=== PATIENT | male | born 1945 | race Caucasian/White ===

== ENCOUNTER → 2017-12-18 14:45 | Outpatient (CLI) | payer MEDICARE, SELFPAY ==
[2017-12-18 16:19] LABS: Anion Gap 5 (5-15); BUN 12 mg/dL (7-18); BUN/Creat Ratio 11.1 RATIO (10-20); Calcium,Total 8.7 mg/dL (8.5-10.1); Chloride 109 mmol/L (98-107); Creatinine, Serum 1.08 mg/dL (0.70-1.30); EST Glomerular Filtration Rate 71 mL/min (>60); Est Glom Filt Rate - Afr Amer 86 mL/min (>60); Glucose 77 mg/dL (74-106); Potassium 4.8 mmol/L (3.5-5.1); Sodium Level 142 mmol/L (136-145)
== END ==
PROVIDERS: Family Provider Family Medicine; PCP Family Medicine; Visit Provider Family Medicine
DX: I10 Essential (primary) hypertension (principal)
CPT/HCPCS: 36415; 80048

== ENCOUNTER → 2018-06-20 11:56 | Outpatient (CLI) | payer MEDICARE, SELFPAY ==
[2018-06-17 07:40] VITALS: BMI 23.2
[2018-06-20 14:24] LABS: AST(SGOT) 18 U/L (15-37); Alanine Aminotransfer ALT/SGPT 20 U/L (16-61); Anion Gap 8 (5-15); BUN 15 mg/dL (7-18); BUN/Creat Ratio 14.6 RATIO (10-20); Calcium,Total 8.6 mg/dL (8.5-10.1); Chloride 109 mmol/L (98-107); Cholesterol 98 mg/dL (200); Creatinine, Serum 1.03 mg/dL (0.70-1.30); EST Glomerular Filtration Rate 75 mL/min (>60); Est Glom Filt Rate - Afr Amer 91 mL/min (>60); Glucose 78 mg/dL (74-106); High Density Lipoprotein 41 mg/dL; Potassium 4.6 mmol/L (3.5-5.1); Sodium Level 143 mmol/L (136-145); Triglycerides 62 mg/dL; Very Low Density Lipoprotein 12 mg/dL (5-40)
--- OUTSIDE RECORDS SUMMARY | 2018-08-06 05:47 | XMS RPT_ITS ---
:1945 Author Organization OHIP Care Team Providers Name Role Phone Ryley, Melrose Attending Unavailable Brittni Sams Referring Unavailable Brittni Sams Attending Unavailable Brittni Sams Primary Care Unavailable Jollleonel Brittni Attending Unavailable Jorakesh Brittni Primary Care Unavailable PROBLEMS PROBLEMS DATE TYPE CONDITION / CODE ATTENDING STATUS SOURCE 06/17/2018 Unknown I25.10 - Ryley, Melrose Active [place] Atherosclerotic heart [facility] disease [facility] coronary artery Repository without angina pectoris / I25.10(ICD-10) 06/17/2018 Unknown I10 - Essential Ryley, Eugene Active [place] (primary) Community hypertension / Hospital I10(ICD-10) Repository 06/17/2018 Unknown E78.2 - Mixed Ryley, Melrose Active [place] hyperlipidemia / Community E78.2(ICD-10) Hospital Repository PROCEDURES PROCEDURES No Procedure Records FoundRESULTS RESULTS BASIC METABOLIC Collected: 06/20/2018 Status: F Source: [place] PROFILE (BMP) 11:57 AM [facility] HOSPITAL REPOSITORY TYPE CODE TESTS RESULT OUT OF RANGE REFERENCE UNITS LAB L501.0100 74-106 mg/dL Normal GLU 78 Result Comment: Please note revised GLUCOSE reference range effective 2017. LAB L501.1000 7-18 mg/dL Normal BUN 15 LAB L501.1100 0.70-1.30 mg/dL Normal CREAT,SERUM 1.03 Result Comment: The validity of the calculated GFR AND GFRAA in patients over 70 years has not been determined. Clinical correlation is essential. LAB L501.1110 >60 mL/min Normal EST GFR 75 Result Comment: Non- GFR Calc LAB L501.1115 >60 mL/min Normal EST GFR - AA 91 Result Comment: GFR Calc LAB L501.1300 10-20 RATIO Normal BUN/CRE 14.6 LAB L501.2200 8.5-10.1 mg/dL CA Normal 8.6 LAB L501.5300 136-145 mmol/L NA Normal 143 LAB L501.5600 3.5-5.1 mmol/L K Normal 4.6 LAB L501.5900 98-107 mmol/L High CL 109 LAB L501.6100 21.0-32.0 mmol/L Normal CO2 26.0 LAB L501.6200 5-15 Normal GAP 8 Performed By: #### L500.2500, L500.4100, L501.4100, L501.4405 #### [facility] [address] [place], [address] LIPID PROFILE Collected: 06/20/2018 Status: F Source: [place] 11:57 AM [facility] TYPE CODE TESTS RESULT OUT OF RANGE REFERENCE UNITS LAB L501.4900 200 mg/dL Normal CHOL 98 Result Comment: <200 mg/dL Desirable 200-240 mg/dL Borderline >240 mg/dL High Risk LAB L501.5000 mg/dL Normal TRIG 62 Result Comment: The drugs N-Acetylcysteine and Metamizole may falsely depress this assay. Serum Triglycerides Reference Interval Normal <150 mg/dL Borderline high 150 - 199 mg/dL High 200 - 499 mg/dL Very High > or = 500 mg/dL LAB L501.6400 mg/dL Normal HDL 41 Result Comment: The drugs N-Acetylcysteine and Metamizole may falsely depress this assay. Reference Range HDL <40 mg/dL Low HDL Cholesterol HDL >or= 60 mg/dL High HDL Cholesterol LAB L501.6500 0-130 mg/dL Normal LDL 45 LAB L501.6600 5-40 mg/dL Normal VLDL 12 Performed By: #### L500.2500, L500.4100, L501.4100, L501.4405 #### [facility] [address] [place], [place], [id number] AST(SGOT) Collected: 06/20/2018 Status: F Source: [place] 11:57 AM [facility] REPOSITORY TYPE CODE TESTS RESULT OUT OF RANGE REFERENCE UNITS LAB L501.4100 15-37 U/L Normal AST 18 Performed By: #### L500.2500, L500.4100, L501.4100, L501.4405 #### [facility] [address] [place], [address] ALANINE AMINOTRANSFERAS Collected: 06/20/2018 Status: F Source: [place] (SGPT) 11:57 AM [facility] REPOSITORY TYPE CODE TESTS RESULT OUT OF RANGE REFERENCE UNITS LAB L501.4405 16-61 U/L Normal ALT 20 Performed By: #### L500.2500, L500.4100, L501.4100, L501.4405 #### [facility] [address] [place], [address] CARDIOLOGY VISIT Observed: 06/17/2018 Status: F Source: [place] REPORT 9:43 AM [facility] HOSPITAL REPOSITORY [facility] [address] [place], [place] [address] OFFICE VISIT Date of Service: 06/17/18 MR#: [id number] Acct: [id number] Name: RAFAEL CHAVEZ Rep #: [id number] : 1945 Provider: Eugene Hedrick MD Age/Sex: 72/M [place] [facility] [facility] Chief Complaint: Follow up Details: RAFAEL CHAVEZ, is a 72 M who presents to the office today for a follow-up visit. He is a gentleman with a history of minimal coronary artery disease status post cardiac catheterization 2005. At that time he had a 50% LAD lesion. He also has a history of hypertension and hyperlipidemia. He denies any chest pain or shortness of breath or paroxysmal nocturnal dyspnea or pedal edema. He has had no neck arm or jaw discomfort suggest angina. He has been compliant with all his medications. He tells me that his blood pressure prior to leaving home today was 140 systolic. His physical exam today demonstrates clear lung pham regular rate and rhythm and no pedal edema. Intake Vital Signs06/17/18 Height 5 ft 10 in 06/17/18 Weight: 162 lb 06/17/18 Body Mass Index (BMI) 23.2 06/17/18 Blood Pressure 158/72 H 06/17/18 Respiratory Rate 18 06/17/18 Pulse Rate 88 Intake Visit Reasons: 1 Y FU Allergies No Known Allergies Allergy (Verified 07/07/15 15:35) Medications Aspirin E.C. [Ecotrin] 81 mg PO QODAY 07/07/15 [History Confirmed 06/17/18] simvastatin 40 mg tablet 40 mg PO QHS #90 tab 12/18/17 [Rx Confirmed 06/17/18] rzawspc-nvpjaaqkyurnw-yspnpcdc 250 mg-250 mg-65 mg tablet 2 tab PO Q6H PRN 06/17/18 [History Confirmed 06/17/18] hydrocodone 5 mg-acetaminophen 500 mg tablet tab PO PRN tab 06/17/18 [History Confirmed 06/17/18] metoprolol tartrate 25 mg tablet 25 mg PO BID #90 tab 06/17/18 [Rx Confirmed 06/17/18] PFSH Medical History Essential (primary) hypertension (Chronic) Hyperlipidemia (Chronic) Fracture of T12 vertebra (Chronic) Ocular migraine (Chronic) Surgical History History of left heart catheterization (Resolved 09/17/05) History of left inguinal hernia repair (Resolved) History of lumbar discectomy (Resolved) History of shoulder surgery (Resolved) Family History Father CAD (coronary artery disease) age 58 Brother CAD (coronary artery disease) age 49 Myocardial infarction from [place] age 49 Brother CAD (coronary artery disease) CABG ICD Social History household members: spouse other: smokes Smoking Status: Former smoker ROS Const Const: Negative for fatigue, weakness, difficulty sleeping, frequent falls, excessive sweating or headache(s) Eyes Eyes: Negative for loss of peripheral vision, transient loss of vision, blurry vision, tunnel vision or double vision ENT ENT: Negative for headache(s), dizziness, Nosebleed/epistaxis or balance problems Cardio Chest Pain: No Palpitations: No Edema: None Muscle aches with walking: None Resp Respiratory: Negative for SOB with activity, SOB at rest, SOB orthopnea\SOB lying down, paroxysmal nocturnal dyspnea or Cough GI GI: Negative nausea, heartburn, black,tarry stools or vomiting : Negative for hematuria Musc Musc: Negative for balance problems, muscle aches/ myalgia, muscle weakness or joint pain Skin Skin: Negative non-healing lesions, unusual bruising or rash Neuro Neuro: Negative for weakness, frequent falls, headache(s), blurry vision, double vision, dizziness, lightheadedness, orthostatic symptoms, near syncope, syncope or lack of coordination Manish Hematologic/Lymphatic: Negative for easy bruising or easy bleeding Endo Endo: Negative for fatigue, excessive sweating or increased thirst/drinking Psych Psych: Negative for anxiety or depression Allergy Allergy/Immunology: Negative for hives, Negative for rash Cardiology Exam Const Appearance: cooperative, healthy appearing, well developed, well groomed and no acute distress Nutritional Appearance: well nourished and average body habitus Orientation: alert, awake and oriented x3 Head Head: normal to inspection, normocephalic and atraumatic Ears: hearing grossly normal bilaterally and external ears normal Nose: external nose normal, nasal mucous membranes and turbinates normal, nares normal, septum normal, no nasal discharge Face and Sinus: face symmetric Mouth: oral mucosae normal, tongue normal, oropharynx normal and moist mucous membranes Teeth and gingiva: dentition normal Throat: posterior oropharynx normal, tonsils normal and uvula midline Eyes General: appearance normal, both eyes and all related structures Eyelids: eyelids normal Conjunctivae: conjunctivae normal Pupils: PERRL, normal by confrontation and accommodation normal EOM: EOM intact bilaterally Neck Neck: normal visual inspection, trachea midline and no JVD JVD: +5 Carotids: normal carotid upstroke and bounding pulses Chest Chest inspection: normal inspection of the chest, symmetric chest movement and normal respiratory effort Auscultation: Bilateral: Clear to Auscultation Cardio Palpation: normal PMI Rate: regular rate Rhythm: regular rhythm Heart sounds: S1 normal, S2 normal and normal, physiologic split S2; negative rub, gallop or murmur GI GI: normal to inspection, soft, no hepatosplenomegaly and bowel sounds present Neuro General: alert, awake, oriented x3, no focal sensory deficit, gait normal and moves all extremities Skin Skin: no rashes or lesions noted Extremities Pulses: Normal: Right Femoral Pulse, Left Femoral Pulse, Right Dorsalis Pedis Pulse, Left Dorsalis Pedis Pulse, Right Posterior Tibial Pulse, Left Posterior Tibial Pulse, Right Radial Pulse, Left Radial Pulse Lower Extremity Edema: None: Bilateral Musculoskel Musculoskeletal: No joint tenderness Psych Psychological: normal affect Assessment AND Plan 1. Atherosclerosis of coronary artery of [place] heart without angina pectoris I25.10 Plan He does have a history of coronary artery disease without any angina my recommendation is that we continue to follow him closely with risk factor modification. He will remain on the aspirin as well as the beta-jonn. 2. Essential (primary) hypertension I10 Plan His blood pressure appears to be mildly elevated. I would recommend that he take the Lopressor 25 mg twice a day. 3. Mixed hyperlipidemia E78.2 Plan He does have a history of hyperlipidemia on medium intensity statin. Repeat lipid profile needs to be performed. Depending on the findings further recommendations will be made. Thank you for allowing me to participate in the care of your patient. 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) Coding Level of Care Code Off vis,est,level 3 Diagnoses Atherosclerosis of coronary artery of [place] heart without angina pectoris I25.10 Essential (primary) hypertension I10 Mixed hyperlipidemia E78.2 Hyperlipidemia type: mixed hyperlipidemia Coding Level of Care Code Off vis,est,level 3 Diagnoses Atherosclerosis of coronary artery of [place] heart without angina pectoris I25.10 Essential (primary) hypertension I10 Mixed hyperlipidemia E78.2 Hyperlipidemia type: mixed hyperlipidemia 06/17/18 0943 <Electronically signed by Eugene Hedrick MD> Date Eugene Hedrick MD Cosigner Signature: Date (if applicable) CC: Brittni Sams MD BASIC METABOLIC Collected: 12/18/2017 Status: F Source: [place] PROFILE (BMP) 2:49 PM [facility] TYPE CODE TESTS RESULT OUT OF RANGE REFERENCE UNITS LAB L501.0100 74-106 mg/dL Normal GLU 77 Result Comment: Please note revised GLUCOSE reference range effective 2017. LAB L501.1000 7-18 mg/dL Normal BUN 12 LAB L501.1100 0.70-1.30 mg/dL Normal CREAT,SERUM 1.08 Result Comment: The validity of the calculated GFR AND GFRAA in patients over 70 years has not been determined. Clinical correlation is essential. LAB L501.1110 >60 mL/min Normal EST GFR 71 Result Comment: Non- GFR Calc LAB L501.1115 >60 mL/min Normal EST GFR - AA 86 Result Comment: GFR Calc LAB L501.1300 10-20 RATIO Normal BUN/CRE 11.1 LAB L501.2200 8.5-10.1 mg/dL CA Normal 8.7 LAB L501.5300 136-145 mmol/L NA Normal 142 LAB L501.5600 3.5-5.1 mmol/L K Normal 4.8 LAB L501.5900 98-107 mmol/L High CL 109 LAB L501.6100 21.0-32.0 mmol/L Normal CO2 28.0 LAB L501.6200 5-15 Normal GAP 5 Performed By: #### L500.2500 #### [facility] [address] [place], [address] ALLERGIES ALLERGIES DATE TYPE / CODE NAME / CODE REACTION SEVERITY SOURCE 07/07/2015 Drug No Known Unknown [facility] Allergy/4160 Allergies/F00 Hospital 16280(SNOMED [id number](RXNOR Repository CT) M) ENCOUNTERS ENCOUNTERS ADMIT/DISCHARGE ACCOUNT ADMITTING ENCOUNTER LOCATION SOURCE NUMBER CLASS 06/20/2018 [id number] Ambulatory [place] [facility] ing:MFPLAB Repository 06/17/2018/ [id number] Ambulatory BMSBuilding:B [place] 8 0 [facility] Repository 12/18/2017 [id number] Ambulatory [place] [facility] ing:MFPLAB Repository PAYERS PAYERS ENCOUNTER GUARANTOR PAYER SUBSCRIBER SOURCE 06/20/2018 EDWARD S Primary EDWARD S [place] [id number] Insurance:MEDICARE BRINKERDOB: Community PATEL PART A [facility] [address] [id number] Number: Repository [id number]: [phone] [id number] [phone] () Date:2018-06-20 06/20/2018 Secondary NOT GIVENUNK [place] Insurance:SELF PAY [facility] Number: Effective Repository Date:2018-06-20 06/17/2018 EDWARD S Primary EDWARD S [place] [id number] Insurance:MEDICARE BRINKERDOB: Community PATEL PART A [facility] [address] [id number] Number: Repository [id number]: 330 [id number] [phone] () Date:2017-06-12 06/17/2018 Secondary NOT GIVENUNK [place] Insurance:SELF PAY [facility] Number: Effective Repository Date:2018-06-17 12/18/2017 EDWARD S Primary EDWARD S [place] [id number] Insurance:MEDICARE BRINKERDOB: Community PATEL PART A [facility] [address] [id number] Number: Repository [id number]: [phone] [id number] [phone] () Date:2017-12-18 12/18/2017 Secondary NOT GIVENUNK [place] Insurance:SELF PAY [facility] Number: Effective Repository Date:2017-12-18
== END ==
PROVIDERS: Family Provider Family Medicine; PCP Family Medicine; Visit Provider Family Medicine
DX: E78.5 Hyperlipidemia, unspecified (principal)
CPT/HCPCS: 36415; 80048; 80061; 84450; 84460

== ENCOUNTER → 2019-06-17 14:59 | Outpatient (CLI) | payer MEDICARE, SELFPAY ==
[2019-06-11 14:02] VITALS: BMI 23.6
[2019-06-17 18:07] LABS: AST(SGOT) 16 U/L (15-37); Alanine Aminotransfer ALT/SGPT 17 U/L (16-61); Anion Gap 4 (5-15); BUN 12 mg/dL (7-18); Calcium,Total 8.7 mg/dL (8.5-10.1); Chloride 110 mmol/L (98-107); Cholesterol 91 mg/dL (200); Creatinine, Serum 1.09 mg/dL (0.70-1.30); EST Glomerular Filtration Rate 70 mL/min (>60); Est Glom Filt Rate - Afr Amer 85 mL/min (>60); Glucose 87 mg/dL (74-106); High Density Lipoprotein 46 mg/dL; Potassium 4.6 mmol/L (3.5-5.1); Sodium Level 142 mmol/L (136-145); Triglycerides 59 mg/dL; Very Low Density Lipoprotein 12 mg/dL (5-40)
== END ==
PROVIDERS: Family Provider Family Medicine; PCP Family Medicine; Referring Provider Family Medicine; Visit Provider Family Medicine
DX: I10 Essential (primary) hypertension (principal); E78.5 Hyperlipidemia, unspecified
CPT/HCPCS: 36415; 80048; 80061; 84450; 84460

== ENCOUNTER → 2023-02-11 | Outpatient (CLI) | payer MEDICARE, SELFPAY ==
[2023-02-11 12:22] LABS: Hematocrit 41.5 % (40-54); Hemoglobin 13.3 g/dL (13.0-16.5); Mean Corpuscular Hgb 31.1 pg (27.0-32.0); Mean Corpuscular Volume 97.2 fL (80-94); Mean Platelet Vol. 8.9 fl (6.2-12.0); Platelet Count 151 K/mm3 (150-450); RBC Distribution Width CV 13.5 % (11.6-14.6); RBC Distribution Width SD 47.7 fl (35.1-43.9); Red Blood Count 4.27 M/mm3 (4.6-6.2); White Blood Count 5.7 K/mm3 (4.4-11.0)
[2023-02-11 12:52] LABS: Vitamin B12 146 pg/mL (211-911)
[2023-02-11 13:04] LABS: AST(SGOT) 12 U/L (15-37); Alanine Aminotransfer ALT/SGPT < 6 U/L (16-61); Albumin, Serum 3.2 g/dL (3.2-5.0); Alkaline Phosphatase 70 U/L (45-117); Anion Gap 2 (5-15); BUN 17 mg/dL (7-18); BUN/Creat Ratio 14.2 RATIO (10-20); Calcium,Total 8.6 mg/dL (8.5-10.1); Chloride 109 mmol/L (98-107); EST Glomerular Filtration Rate 62 mL/min (>60); Est Glom Filt Rate - Afr Amer 75 mL/min (>60); Globulin 3.1 g/dL (2.2-4.2); Glucose 112 mg/dL (74-106); Potassium 4.2 mmol/L (3.5-5.1); Protein, Total 6.3 g/dL (6.4-8.2); Sodium Level 139 mmol/L (136-145); Thyroid Stim Hormone (TSH) 0.95 uIU/mL (0.358-3.74)
--- NOTE | 2023-02-11 13:41 | ST.MBS ---
Modified Barium Swallow Patient Information Study Date: 02/11/23 Study Time: 13:00 Direct Billable Minutes: 150 Total Minutes procedure & reportin Diagnosis: G20 - Parkinson's disease, R13.10 - Dysphagia Referring Physician: Devang Irizarry Reason for Referral: Objectively assess swallow function, risk for aspiration and to determine recommendations for LRD and compensatory strategies to improve safety of swallow. Medical History: Patient is a 77 yo M w/ PMHx re: hypertension, coronary artery disease and hyperlipidemia who presents to [facility] for Modified Barium Swallow Study. Patient accompanied by his son, Javier.? Patient was referred by neurologist, Dr. Irizarry after Parkinson?s disease evaluation in December 2022. Per Dr. Irizarry?s report, around 2020 patient developed tremor in the hands, slowing in his gait, softer voice and difficulty swallowing pills. His tremor gradually worsened over time and has interfered with activities such as using eating utensils and writing warranting neurology evaluation. He states that due to the severity of his tremor his oral intake has been less and he has had some recent weight loss. Dr. Irizarry suspects weight loss is a result of dysphagia. Dr. Irizarry diagnosed patient w/ Parkinson's disease of moderate severity.? Patient denies coughing or choking w/ PO intake. Denies hx of pneumonia. Upper and lower dentures in place for MBSS. Dentition: Upper Dentures and Lower Dentures Mental Status: WNL Respiratory Status: Oxygenating on Room Air Penetration-Aspiration Scale Penetration-Aspiration Scale: OBJECTIVE ASSESSMENT OF SWALLOW FUNCTION (QUANTITATIVE ? PER TRIAL): PENETRATION / ASPIRATION SCALE (ADAM): 1 = does not enter airway 2 = enters airway/above vocal folds/ejected 3 = enters airway/above vocal folds/not ejected 4 = enters airway/contacts vocal folds/ejected 5 = enters airway/contacts vocal folds/not ejected 6 = enters airway/below vocal folds/ejected 7 = enters airway/below vocal folds/not ejected despite effort 8 = enters airway/below vocal folds/no effort VIDEOFLOROSCOPIC SCALE SCORE (ADAM): Grade I = aspiration of material that has penetrated into the laryngeal vestibule, intact cough reflex Grade II = aspiration < 10 % of the bolus, intact cough reflex Grade III = aspiration of < 10 % of the bolus, reduced cough reflex or aspiration of > 10 % of the bolus, intact cough reflex Grade IV = aspiration of > 10 % of the bolus, reduced cough reflex Penetration-Aspiration Scale Score Thin Liquid via teaspoon: Result: 8= enters airway/below vocal folds/no effort Thin Liquid via teaspoon Trial 2: Result: 2= enter airway/above vocal folds/ejected Thin Liquid via single sip from cup: Result: 2= enter airway/above vocal folds/ejected Thin Liquid via single sip from cup Trial 2: Result: 3= enters airways/above vocal folds/not ejected Thin Liquid via single sip from cup Trial 3: Result: 2= enter airway/above vocal folds/ejected Thin Liquid via single sip from straw: Result: 8= enters airway/below vocal folds/no effort Rhodell Thick Liquid via single sip from cup: Result: 1= does not enter airway Honey Thick Liquid Liquid via single sip from cup: Result: 1= does not enter airway Pudding: Result: 1= does not enter airway Cookie: Result: 1= does not enter airway Thin Liquid via single sip from cup Trial 4: Result: 5= enters airways/contacts vocal folds/not ejected Thin Liquid via single sip from cup Trial 5: Result: 1= does not enter airway Thin Liquid via single sip from cup Trial 6: Result: 5= enters airways/contacts vocal folds/not ejected Oral Phase Labial Seal: No Labial Escape Tongue Control During Bolus Hold: Posterior escape of greater than half of bolus Bolus Preparation/Mastication: Slow prolonged chewing/mashing with complete recollection Bolus Transport/Lingual Motion: Repetitive/disorganized tongue motion Oral Residue: Residue collection on oral structures Pharyngeal Phase Initiation of Pharyngeal Swallow: Bolus head in pyriforms Soft Palate Elevation: No bolus between soft palate and pharyngeal wall Laryngeal Elevation: Partial superior movement thyroid cart/partial apprx aryt-epig petiole Anterior Hyoid Excursion: Complete anterior movement Epiglottic Movement: Partial inversion Laryngeal Vestibule Closure at Height of Swallow: Incomplete; narrow column of air/contrast in laryngeal vestibule Pharyngeal Stripping Wave: Present - diminished Pharyngoesophageal Segment Opening: Parital distension and partial duration; parital obstruction of flow Tongue Base Retraction: Wide column of contrast between tongue base & post. pharyngeal wall Pharyngeal Residue: Collection of residue within or on pharyngeal structures Esophageal Phase Esophageal Clearance: Complete clearance Diagnosis/Impression Diagnosis: R13.12 - Mild/Moderate Oropharyngeal Dysphagia Impression: Patient presents w/ oropharyngeal dysphagia likely secondary to Parkinson's disease. Oral phase primarily marked by... - mastication insufficiency - suboptimal lingual control resulting in poor oral clearance - decreased bolus control resulting in premature loss of >1/2 of the bolus to the pyriforms and laryngeal vestibule. Pharyngeal phase primarily marked by... - delayed pharyngeal swallow onset timing resulting in suboptimal bolus location upon swallow onset - reduced closure of the airway during deglutition attributed to reduced laryngeal elevation resulting in insufficient epiglottic inversion, poor laryngeal vestibule closure and poor duration of laryngeal vestibule closure. - penetration observed w/ thin via cup - SILENT aspiration observed w/ initial sip of thin liquid vis tsp and thin via straw - poor pharyngeal motility attributed to wide tongue base retraction, reduced posterior stripping wave and reduced UES opening resulting in moderate residue within the vallecula and pyriforms. Patient is at high risk for post prandial penetration or aspiration d/t significance of pharyngeal residues. - increased pharyngeal residues w/ thicker viscosities. Patient required 4 swallows for 1 small sip of nectar thick liquid. D/t patient having no hx of pneumonia and worsening pharyngeal residues w/ thicker viscosities (nectar thick, honey thick), REMOVABLE PROSTHODONTIST is recommending thin liquids w/ use of strict compensatory strategies. Compensatory strategies include sit upright w/ all PO intake, slow rate of intake, small sips, small bites, multiple swallows (to clear pharyngeal residues) and alt bite/sip (to clear oral residues). Patient did demonstrate some difficulty w/ self feeding d/t tremors. Patient would benefit from assistance w/ self feeding and verbal prompting to utilize trained strategies as patient has hx of MCI. Recommendations Diet: Regular Textures and Thin Liquids Compensatory Strategies: Small Bites, Small Sips, No Straws, Slow Rate, Multiple Swallows, Alternate bites/solids and sips/liquids, Sitting upright and Assist with verbal cues to use recommended strategies Supervision: Assist as needed Recommend Repeat Modified Barium Swallow: Yes Need for Skilled Speech Therapy Services: Yes Comment: Patient requires intensive skilled speech-language intervention targeting continued diet management, training and implementation of recommended compensatory strategies, training and implementation of recommended oropharyngeal exercises to facilitate improved swallow function, and caregiver/family training. This REMOVABLE PROSTHODONTIST communicated w/ Dr. Irizarry's office on 02/11/[address] referral for OP ST. Education Completed: 1. Described result of evaluation., 2. Pt understands evaluation & agrees with goals and treatment plan. and 4. Family/caregivers understand evaluation & agree w/ goals & tx plan. Status Active ST Patient: Active Contact Information [facility] Speech Therapy:: Belinda Caal M.A. CCC-REMOVABLE PROSTHODONTIST Speech-Language Pathologist [facility] [address] [place] [address] [email or web address] [phone]
[2023-02-14 05:07] LABS: Vitamin B1, Thiamine 92.1 nmol/L (66.5-200.0)
== END | disposition home or self-care (01) ==
PROVIDERS: PCP Family Medicine; Referring Provider Psychiatry & Neurology Neurology; Visit Provider Psychiatry & Neurology Neurology
DX: G20 Parkinson's disease (principal); R13.10 Dysphagia, unspecified; R49.8 Other voice and resonance disorders; G31.84 Mild cognitive impairment of uncertain or unknown etiology; E78.2 Mixed hyperlipidemia
CPT/HCPCS: 36415; 74230; 80053; 82607; 82746; 84425; 84443; 85027; 92611

== ENCOUNTER 2023-05-08 17:27 | Inpatient (IN) | payer MEDICARE, SELFPAY ==
[2023-05-08 17:28] VITALS: BP 145/76; PULSE 89; RESP 14; TEMP 35.8; O2SAT 98; BMI 20.1
[2023-05-08 20:18] LABS: Absolute Lymphocyte Count 1.17 X10^3/uL (0.83-4.51); Absolute Neutrophil Count 6.3 X10^3/uL (2.0-7.7); Basophil# 0.02 X10^3/uL; Basophil% 0.2 % (0-1); Eosinophil# 0.03 X10^3/uL; Eosinophils% 0.4 % (0-5); Hematocrit 41.2 % (40-54); Hemoglobin 13.6 g/dL (13.0-16.5); Lymphocyte # 1.17 X10^3/ul (0.83-4.51); Lymphocyte % 14.3 % (19-41); Mean Corpuscular Hgb 31.1 pg (27.0-32.0); Mean Corpuscular Volume 94.3 fL (80-94); Mean Platelet Vol. 9.4 fl (6.2-12.0); Monocyte# 0.62 X10^3/uL; Monocyte% 7.6 % (0-10); NRBC Flagged by Analyzer 0 % (0-5); Neutrophil % 77.3 % (47-70); Platelet Count 148 K/mm3 (150-450); RBC Distribution Width CV 13.2 % (11.6-14.6); RBC Distribution Width SD 45.6 fl (35.1-43.9); Red Blood Count 4.37 M/mm3 (4.6-6.2); White Blood Count 8.2 K/mm3 (4.4-11.0)
[2023-05-08 20:35] LABS: ALB/GLOB Ratio 1.1 RATIO (0.9-2.4); AST(SGOT) 12 U/L (15-37); Alanine Aminotransfer ALT/SGPT 8 U/L (16-61); Albumin, Serum 3.3 g/dL (3.2-5.0); Alkaline Phosphatase 55 U/L (45-117); Anion Gap 3 (5-15); BUN 19 mg/dL (7-18); BUN/Creat Ratio 17.1 RATIO (10-20); Calcium,Total 8.9 mg/dL (8.5-10.1); Chloride 108 mmol/L (98-107); Creatinine, Serum 1.11 mg/dL (0.70-1.30); EST Glomerular Filtration Rate 68 mL/min (>60); Est Glom Filt Rate - Afr Amer 82 mL/min (>60); Estimated Creatinine Clearance 49.37 ml/min; Globulin 3.1 g/dL (2.2-4.2); Glucose 98 mg/dL (74-106); Lipase 35 U/L (13-75); Potassium 4.3 mmol/L (3.5-5.1); Protein, Total 6.4 g/dL (6.4-8.2); Sodium Level 141 mmol/L (136-145)
[2023-05-08 20:54] LABS: Lactic Acid 1.2 mmol/L (0.4-1.9)
--- NOTE | 2023-05-08 20:59 | CT_ITS ---
INDICATION: right inguinal hernia, nausea EXAMINATION: CT ABDOMEN AND PELVIS WITH CONTRAST - CT Abdomen And Pelvis W/ Contrast Injection TECHNIQUE: Helically acquired images were obtained of the abdomen and pelvis following IV contrast. A radiation dose optimization technique was used for this scan. IV Contrast dosage and agent: 75 cc [id number] Oral contrast: None. COMPARISON: None. FINDINGS: LOWER CHEST: Bibasilar dependent changes. No cardiomegaly or pericardial effusion. LIVER: Homogeneous. No concerning focal mass. GALLBLADDER AND BILIARY TREE: No calcified gallstones. No gallbladder distension or wall edema. No intra- or extrahepatic biliary ductal dilation. PANCREAS: No focal cystic or solid mass. SPLEEN: Normal size without focal cystic or solid mass. ADRENAL GLANDS: No nodules. KIDNEYS AND URETERS: Bilateral, large renal cortical cysts, largest on the left 10 cm, on the right 8 cm. No hydronephrosis. PERITONEUM: No ascites or free air. BOWEL: Normal appendix. Moderately distended small bowel with multiple fluid levels proximal to the right inguinal hernia. No focal inflammatory change. LYMPH NODES: No enlarged mesenteric or retroperitoneal lymph nodes. VESSELS: Aorta is non-dilated. URINARY BLADDER: Unremarkable. REPRODUCTIVE ORGANS: Prostate hypertrophy. ABDOMINAL WALL: Large right internal hernia contains fluid and small bowel loop with proximal small bowel dilatation. BONES: No acute or aggressive abnormality. Thoracolumbar posterior fusion hardware. CT/Abdomen/Pelvis W IV Cont ONLY IMPRESSION: Partial small bowel obstruction due to involvement in a large right inguinal hernia. Large bilateral renal cortical cysts up to 10 cm. Electronically Signed: Hugh Sandoval MD at 21:55 EDT ,
--- NOTE | 2023-05-08 21:07 | EDS_ITS ---
HPI HPI - GI History of Present Illness Chief Complaint: Abd Pain Narrative Narrative: 77-year-old male presenting with right inguinal hernia concern. He states he has this for 6 months. He states he did not tell his primary care physician about this but was not referred to surgery. He states its been worse over the last 3 days. He describes pain that is 6/7 of 10. It is mostly in the right lower inguinal region but also in the left lower abdomen as well. Patient states he has history of left inguinal hernia repair. PFSH PFSH Medical History Essential (primary) hypertension Fracture of T12 vertebra Hyperlipidemia Ocular migraine Parkinson's disease Home Medications aspirin 81 mg tablet,delayed release 81 mg PO QODAY 07/07/15 [History Last Taken Unknown] [id number] 250 mg-250 mg-65 mg tablet (Excedrin Extra Strength) 2 tab PO Q6H PRN 06/17/18 [History Last Taken Unknown] hydrocodone 5 mg-acetaminophen 500 mg tablet tab PO PRN 06/17/18 [History Last Taken Unknown] tamsulosin 0.4 mg capsule 0.4 mg PO DAILY #90 caps 07/13/22 [Rx Last Taken Unknown] simvastatin 40 mg tablet 40 mg PO QHS #90 tabs 11/27/22 [Rx Last Taken Unknown] carbidopa 25 mg-levodopa 100 mg tablet 1 tab PO .COMPLEX #90 tabs 01/14/23 [Rx Last Taken Unknown] alprazolam 1 mg tablet 1 mg PO ONCE #1 TAB 01/23/23 [Rx Last Taken Unknown] metoprolol tartrate 25 mg tablet 25 mg PO BID #180 tabs 02/04/23 [Rx Last Taken Unknown] Allergy/AdvReac Type Severity Reaction Status Date / Time No Known Allergies Allergy Verified 05/08/23 17:28 Family History (Reviewed 07/13/22 @ 11:45 by Ronald Saldivar STUDENT LIFE COORDINATOR, STUDENT LIFE COORDINATOR-C) Father CAD (coronary artery disease) age 58 Brother CAD (coronary artery disease) age 49 Myocardial infarction from [place] age 49 Brother CAD (coronary artery disease) CABG ICD Surgical History History of left heart catheterization (09/17/05) History of left inguinal hernia repair History of lumbar discectomy History of shoulder surgery Social History (Reviewed 07/13/22 @ 11:45 by Ronald Saldivar STUDENT LIFE COORDINATOR, STUDENT LIFE COORDINATOR-C) household members: spouse other: smokes Smoking Status: Former smoker how long ago did patient quit smokin-30 years ago second hand exposure: Yes alcohol intake: current alcohol intake frequency: holidays/special occasions only substance use type: does not use caffeine: Yes Type: coffee Number of servings: 2 ROS ROS ED Constitutional Constitutional ED: Denies chills, fever(s) or sweats Eyes Eyes: Denies blurry vision or change in vision ENT ENT ED: Denies ear pain or sore throat Cardiovascular Cardiovascular: Denies chest pain, palpitations or racing heartbeat Respiratory/Chest Respiratory/Chest: Denies cough, dyspnea or sputum Gastrointestinal Gastrointestinal: Reports abdominal pain and other Details: Right inguinal hernia ; Denies constipation, diarrhea, nausea or vomiting Genitourinary Genitourinary ED: Denies dysuria, hematuria or urinary frequency Musculoskeletal Musculoskeletal: Denies arthralgias, myalgias or neck pain Integumentary Denies abscess, Abrasions or rash Neurologic Neurologic: Denies headache(s), paresthesias or weakness Psychiatric Psychiatric: Denies anxiety, depression, suicidal ideation or suicidal thoughts Endocrine Endocrinology: Denies polydipsia or polyuria EXAM Physical Exam Const Vital Signs: 05/08/23 17:28 Temperature 96.4 F L Temperature Source Temporal Pulse Rate 89 Respiratory Rate 14 Blood Pressure 145/76 H Blood Pressure Mean 99 Pulse Ox 98 Oxygen Delivery Method Room Air Positive well nourished General Appearance ED: NAD HEENT Reports moist mucous membranes Eyes PERRL and EOMs intact bilaterally Resp normal respiratory effort Cardio regular rate and regular rhythm GI GI Narrative: Large right inguinal hernia Palpation: tender LLQ and hernia Back/Spine no CVA tenderness Neuro CN's II-XII intact bilaterally and moves all extremities Sensorium / Orientation: alert Psych mental status grossly normal Skin no wounds MDM MDM MDM Narrative Medical decision making narrative: Patient presenting with large right inguinal hernia and pain associated with th is. Differential also includes bowel obstruction. We will obtain a CBC to assess with blood cell count, hemoglobin, platelets. BMP to assess renal function and electrolytes. Lactic acid 2 assess for ischemic bowel. CMP to assess for liver function, renal function, electrolytes. Patient medicated morphine and Zofran. We will obtain a CT of the abdomen pelvis with IV contrast. CBC shows a normal white blood cell count 8.2. Hemoglobin stable 13.6. Platelets are low at 148. Renal function and electrolyte are normal. LFTs are normal. Lipase is normal. Lab Data Labs: Laboratory Results - last 24 hr 05/08/23 20:00 WBC 8.2 RBC 4.37 L Hgb 13.6 Hct 41.2 MCV 94.3 H MCH 31.1 MCHC 33.0 RDW Std Deviation 45.6 H RDW Coeff of Adrian 13.2 Plt Count 148 L MPV 9.4 Immature Gran % (Auto) 0.200 Neut % (Auto) 77.3 H Lymph % (Auto) 14.3 L [place] % (Auto) 7.6 Eos % (Auto) 0.4 Baso % (Auto) 0.2 Absolute Neuts (auto) 6.3 Absolute Lymphs (auto) 1.17 Nucleated RBC % 0 Sodium 141 Potassium 4.3 Chloride 108 H Carbon Dioxide 30.0 Anion Gap 3 L BUN 19 H Creatinine 1.11 Estim Creat Clear Calc 49.37 Est GFR (MDRD) Af Amer 82 Est GFR (MDRD) Non-Af 68 BUN/Creatinine Ratio 17.1 Glucose 98 Lactic Acid 1.2 Calcium 8.9 Total Bilirubin 0.50 AST 12 L ALT 8 L Alkaline Phosphatase 55 Total Protein 6.4 Albumin 3.3 Globulin 3.1 Albumin/Globulin Ratio 1.1 Lipase 35 Discharge Plan Triage Chief Complaint: Abd Pain ED Provider: Daniel Juarez Dx/Rx/DC Orders Prescriptions: No Action hydrocodone 5 mg-acetaminophen 500 mg tablet 5-500 mg tablet PO PRN Excedrin Extra Strength 250-250-65 mg tablet 2 tab PO Q6H PRN tamsulosin 0.4 mg capsule 0.4 mg PO DAILY Qty: 90 3RF carbidopa-levodopa 25-100 mg tablet 1 tab PO .COMPLEX Qty: 90 5RF Rx Instructions: 1 Tab PO daily for one week then 1 tab BID for one week then 1 tab TID thereafter alprazolam 1 mg tablet 1 mg PO ONCE Qty: 1 0RF Rx Instructions: To be taken 30 minutes prior to MRI aspirin 81 MG tablet 81 mg PO QODAY Patient Comments: TAKES EVERY OTHER DAY simvastatin 40 mg tablet 40 mg PO QHS Qty: 90 3RF metoprolol tartrate 25 mg tablet 25 mg PO BID Qty: 180 3RF Primary Care Provider: Brittni Sams Referrals: Brittni Sams MD [Primary Care Provider] -
[2023-05-08] MEDS: Morphine 4 MG/ML Syringe IV (21:17)
[2023-05-08] MEDS: Ondansetron 4 MG/2 ML Vial IV (21:17)
[2023-05-08 22:03] VITALS: RESP 16
--- NOTE | 2023-05-08 22:42 | HP.PCM_ITS ---
HPI - General General Date of Admission: 05/08/23 Chief Complaint: Progressive groin pain HPI Narrative RAFAEL CLINTON, is a 77 M who presents to [facility] ER after 6 months of bulging in his right groin with activity and progressive abdominal pain. He presents today with his son. Together they note that over the last 2 days the pain has become more intense and that the bulging occasionally becomes quite firm. Mr. Clinton denies any associated nausea or vomiting. His son adds that sometimes the pain has his father doubled over. Patient's ER work-up is notable for CBC that demonstrates normal white blood cell count and normal lactic acid. CT imaging of the abdomen pelvis shows partial small bowel obstruction and small bowel within a large right inguinal hernia. Mr. Clinton confirms a history of Parkinson's and a cardiac arrhythmia but he is not able to specify further on the latter. He simply states that his heart speeds up. He also confirms a prior surgical history of a left inguinal hernia [place] [address] Márquez. [facility] Medical History (Updated 05/08/23 @ 22:[address] Nick Aguirre MD) Essential (primary) hypertension Fracture of T12 vertebra Hyperlipidemia Ocular migraine Parkinson's disease Home Medications hydrocodone 5 mg-acetaminophen 500 mg tablet 1 tab PO Q6H PRN PRN pain 06/17/18 [History Last Taken Unknown] tamsulosin 0.4 mg capsule 0.4 mg PO DAILY #90 caps 07/13/22 [Rx Last Taken Unknown] simvastatin 40 mg tablet 40 mg PO QHS #90 tabs 11/27/22 [Rx Last Taken Unknown] carbidopa 25 mg-levodopa 100 mg tablet 1 tab PO .COMPLEX #90 tabs 01/14/23 [Rx Last Taken Unknown] metoprolol tartrate 25 mg tablet 25 mg PO BID #180 tabs 02/04/23 [Rx Last Taken Unknown] Allergy/AdvReac Type Severity Reaction Status Date / Time No Known Allergies Allergy Verified 05/08/23 17:28 Family History (Reviewed 07/13/22 @ 11:45 by Ronald Saldivar WATER QUALITY SPECIALIST, WATER QUALITY SPECIALIST-C) Father CAD (coronary artery disease) age 58 Brother CAD (coronary artery disease) age 49 Myocardial infarction from [place] age 49 Brother CAD (coronary artery disease) CABG ICD Surgical History History of left heart catheterization (09/17/05) History of left inguinal hernia repair History of lumbar discectomy History of shoulder surgery Social History (Reviewed 07/13/22 @ 11:45 by Ronald Saldivar WATER QUALITY SPECIALIST, WATER QUALITY SPECIALIST-C) household members: spouse other: smokes Smoking Status: Former smoker how long ago did patient quit smokin-30 years ago second hand exposure: Yes alcohol intake: current alcohol intake frequency: holidays/special occasions only substance use type: does not use caffeine: Yes Type: coffee Number of servings: 2 Vital Signs Vital Signs Vital Signs: 05/08/23 17:28 05/08/23 22:03 Temperature 96.4 F L Temperature Source Temporal Pulse Rate 89 Respiratory Rate 14 16 Blood Pressure 145/76 H Blood Pressure Mean 99 Pulse Ox 98 Oxygen Delivery Method Room Air Weight Weight: 140 lb 4.8 oz Body Mass Index (BMI) 20.1 Physical Exam Const alert and oriented x3 Constitutional Narrative: Rhythmic tremor consistent with Parkinson's Resp normal respiratory effort GI GI Narrative: Slender, no visible scars, nondistended, soft, nontender to palpation. Narrative: Bulge of the right groin with some mild firmness. No discoloration. When patient is placed in Trendelenburg with gentle traction upon hernia contents hernia returns to abdominal domain and patient expresses immediate relief Results Lab / Micro Data 05/08/23 20:00 05/08/23 20:00 Labs: Laboratory Results - last 24 hr 05/08/23 20:00: WBC 8.2, RBC 4.37 L, Hgb 13.6, Hct 41.2, MCV 94.3 H, MCH 31.1, MCHC 33.0, RDW Std Deviation 45.6 H, RDW Coeff of Adrian 13.2, Plt Count 148 L, MPV 9.4, Immature Gran % (Auto) 0.200, Neut % (Auto) 77.3 H, Lymph % (Auto) 14.3 L, [place] % (Auto) 7.6, Eos % (Auto) 0.4, Baso % (Auto) 0.2, Absolute Neuts (auto) 6.3, Absolute Lymphs (auto) 1.17, Nucleated RBC % 0, Sodium 141, Potassium 4.3, Chloride 108 H, Carbon Dioxide 30.0, Anion Gap 3 L, BUN 19 H, Creatinine 1.11, Estim Creat Clear Calc 49.37, Est GFR (MDRD) Af Amer 82, Est GFR (MDRD) Non-Af 68, BUN/Creatinine Ratio 17.1, Glucose 98, Lactic Acid 1.2, Calcium 8.9, Total Bilirubin 0.50, AST 12 L, ALT 8 L, Alkaline Phosphatase 55, Total Protein 6.4, Albumin 3.3, Globulin 3.1, Albumin/Globulin Ratio 1.1, Lipase 35 Radiology Impression Abdomen/Pelvis CT 05/08/23 20:59 IMPRESSION: Partial small bowel obstruction due to involvement in a large right inguinal hernia. Large bilateral renal cortical cysts up to 10 cm. Electronically Signed: Hugh Sandoval MD at 21:55 EDT , Assessment & Plan Assessment/Plan (1) Incarcerated right inguinal hernia: PLAN: This is a 77-year-old male who presents with signs and symptoms of incarcerated right inguinal hernia. Given that patient's exam did not demonstrate any discoloration or signs of strangulation and his WBC and lactic acid remained within normal limits I opted to try for reduction of his hernia. When placed in Trendelenburg hernia reduced rather easily to the peritoneal cavity. His abdomen remains soft and his presenting pain complaints has significantly improved. Radiology had commented on patient's CT imaging that there was concern for possible partial small bowel obstruction as well as that they had not noticed any acute inflammatory change. Mr. Clinton denies any nausea or vomiting or obstructive symptoms and I do believe I see some mild thickening of the small bowel. Given these distinctions, I have recommended inpatient admission with plans for repair of inguinal hernia tomorrow. I have discussed both open and robotic approaches with mesh placement. Patient is familiar with the open approach given his prior left inguinal repair in 2016. I have shared that the robotic approach would afford me an opportunity to look at his bowel and yet if he remains tender to palpation tomorrow I would consider open inguinal hernia repair paired with diagnostic laparoscopy. Patient and his son expressed understanding of both approaches and the overall plan. We will make him n.p.o. past midnight and anticipate surgery tomorrow. I have asked for consultation from the hospitalist service given patient's comorbidities and the perioperative management of more specifically his cardiac arrhythmia and Parkinson's disease. Charges/Coding Visit Charges Inpatient E&M: 40225 Init Hosp L2
[2023-05-08 22:43] VITALS: BP 135/84; PULSE 73; RESP 18; TEMP 36.1; O2SAT 96
--- NOTE | 2023-05-08 23:04 | PCM.CONS.GEN ---
Assessment & Plan Assessment/Plan (1) Incarcerated right inguinal hernia: PLAN: Plan The patient is a 77 y/o M w/ PMHx: HTN, HLD, Parkinson's disease with associated Mild cognitive impairment, Nonobstructive CAD, Hx Ocular migraines, BPH, Former tobacco use who presents to the [facility] ED on 05/08/23 with history of right inguinal region discomfort worsening over the last 3 days with pain 6-7 out of 10 in severity primarily in the right lower inguinal region but also in the left lower abdomen as well status post previous history of a left inguinal hernia repair with no associated nausea or vomiting but given ongoing discomfort prompted ED evaluation. #1. Abdominal pain with partial small bowel obstruction secondary to involvement of large right inguinal hernia, incarcerated: Admitted per general surgery, maintained on judicious IVFs, NG placement concept and serial KUB per surgery discretion, strict I&Os, IV pain/anti-emetics PRN per surgery discretion, will place on IV PPI, NPO status, from discussion planned operative intervention likely 05/09/2023. #2. Incidentally noted large bilateral renal cortical cyst: CT imaging with large bilateral renal cortical cysts measuring up to 7 cm, encourage continued outpatient evaluation as needed. #3. Hypertension: Will temporarily hold oral home regimen including metoprolol and in the interim we will have PRN hydralazine. #4. Hyperlipidemia: Will temporally hold oral statin, resume once cleared per general surgery given planned OR and partial small bowel obstruction associated. #5. Anxiety: We will temporally hold oral alprazolam which from records is primarily used for imaging but if necessary may consider adding low-dose Ativan as necessary. #6. Parkinson's disease with mild cognitive impairment: Given partial bowel obstruction will temporally hold oral regimen given planned operative intervention, resume following surgical intervention once cleared by general surgery. PT/OT/case management consulted for discharge planning. #7. Nonobstructive CAD: Patient status post previous cardiac catheterization 2005 with at that time 50% LAD lesion with no PCI or intervention and no chronic symptoms. We will temporally hold aspirin, statin, metoprolol regimen given presentation as noted, resume once cleared per surgery. #8. Former tobacco use: Encourage continued tobacco cessation. #9. BPH: We will temporally hold home Flomax regimen, monitor urine output. #10. DVT prophylaxis: SCDs, chemoprophylaxis per surgery discretion given planned OR. #11. CODE status: Patient denies having healthcare power of sterile process coordinator or living will in place but notes he would want his son to be his decision-maker. Given admission, discussed CODE status at length including difference between FULL code, DNR-CCA and DNR-CC status. Following discussions about the differences in these status, requested Full Code status at this time but notes intention to discuss these items with his son also and will update staff of any changes. Advanced Care Planning Face to Face Time: 16 minutes. HPI Consult Data Date of Consult: 05/08/23 HPI Narrative Reason for Consultation: Abdominal pain. HPI Narrative: The patient is a 77 y/o M w/ PMHx: HTN, HLD, Parkinson's disease with associated Mild cognitive impairment, Nonobstructive CAD, Hx Ocular migraines, BPH, Former tobacco use who presents to the [facility] ED on 05/08/23 with history of right inguinal region discomfort worsening over the last 3 days with pain 6-7 out of 10 in severity primarily in the right lower inguinal region but also in the left lower abdomen as well status post previous history of a left inguinal hernia repair with no associated nausea or vomiting but given ongoing discomfort prompted ED evaluation. He currently notes that his discomfort is primarily now in the right lower quadrant and right inguinal region but is decreased to 5 out of 10 in severity and notes it more dull aching. Work-up in the ED included T96.4, heart rate 89, BP 145/76, respiratory rate 14, 98% on room air, CBC with WC 8.2, hemoglobin 13.6, platelet 148 without marked shift, CMP with chloride 108, BUN/creatinine 19/1.11, lactic acid 1.2, hepatic profile not marked appearing, lipase 35, CT abdomen and pelvis with partial small bowel obstruction secondary to involvement of a large right inguinal hernia, large bilateral renal cortical cysts measuring up to 7 cm. In the ED patient administered IV Zofran 4 mg x 2, morphine 4 mg IV x1, LR. Given concern for incarcerated hernia ED discussed case with general surgery Dr. Aguirre who admitted and hospitalist medicine consultation has been requested. [facility] Medical History (Updated 05/08/23 @ 23:[address] Zoey Yoder MD) Anxiety Atherosclerosis of coronary artery of [place] heart without angina pectoris BPH (benign prostatic hyperplasia) Essential (primary) hypertension Fracture of T12 vertebra Hyperlipidemia Ocular migraine Parkinson's disease Home Medications hydrocodone 5 mg-acetaminophen 500 mg tablet 1 tab PO Q6H PRN PRN pain 06/17/18 [History Last Taken Unknown] tamsulosin 0.4 mg capsule 0.4 mg PO DAILY #90 caps 07/13/22 [Rx Last Taken Unknown] simvastatin 40 mg tablet 40 mg PO QHS #90 tabs 11/27/22 [Rx Last Taken Unknown] carbidopa 25 mg-levodopa 100 mg tablet 1 tab PO .COMPLEX #90 tabs 01/14/23 [Rx Last Taken Unknown] metoprolol tartrate 25 mg tablet 25 mg PO BID #180 tabs 02/04/23 [Rx Last Taken Unknown] Allergy/AdvReac Type Severity Reaction Status Date / Time No Known Allergies Allergy Verified 05/08/23 17:28 Family History Father CAD (coronary artery disease) age 58 Brother CAD (coronary artery disease) age 49 Myocardial infarction from [place] age 49 Brother CAD (coronary artery disease) CABG ICD Surgical History History of left heart catheterization (09/17/05) History of left inguinal hernia repair History of lumbar discectomy History of shoulder surgery Social History household members: spouse other: smokes Smoking Status: Former smoker how long ago did patient quit smokin-30 years ago second hand exposure: Yes alcohol intake: current alcohol intake frequency: holidays/special occasions only substance use type: does not use caffeine: Yes Type: coffee Number of servings: 2 ROS ROS Narrative Admission Review of Systems: CONSTITUTIONAL: No weight loss, fever, chills, + weakness or fatigue. HEENT: Eyes: No visual loss, blurred vision, double vision or yellow sclerae. Ears, Nose, Throat: No hearing loss, sneezing, congestion, runny nose or sore throat. SKIN: No rash or itching, lesions, wounds. CARDIOVASCULAR: No chest pain, chest pressure or chest discomfort, palpitations, edema, orthopnea, syncopal events. RESPIRATORY: No shortness of breath, cough or sputum, wheezing, hemoptysis. GASTROINTESTINAL: + Abdominal pain. No anorexia, nausea, vomiting or diarrhea, melena, BRBPR. GENITOURINARY: + Right inguinal region discomfort. No dysuria, frequency, urgency or retention. NEUROLOGICAL: + Chronic hypophonia, dysphagia, mild cognitive impairment with underlying Parkinson disease with significant upper extremity pill-rolling tremors. No headache, dizziness, syncope, paralysis, ataxia, numbness or tingling in the extremities, focal weakness, change in bowel or bladder control, seizure. MUSCULOSKELETAL: + muscle, back pain, joint pain or stiffness. HEMATOLOGIC: No anemia. + Easy bleeding or bruising. LYMPHATICS: No enlarged nodes. No history of splenectomy. PSYCHIATRIC: + History of anxiety. ENDOCRINOLOGIC: No reports of sweating, cold or heat intolerance. No polyuria or polydipsia. ALLERGIES: No history of asthma, hives, eczema or rhinitis. Physical Exam Narrative Physical Examination: General: Awake, alert, oriented to self, place and recent events but does have underlying significant Parkinson's disease and mild cognitive impairment, remains cooperative, seated upright in ED, notes discomfort to the right inguinal region has improved, currently rated 5 out of 10 in severity. Skin: Normal color, normal turgor, no icterus, no cyanosis except occasional staged ecchymoses. HEENT: AT/NC, EOMI, PERRLA, dry MM, no carotid bruits or JVD noted. Lungs: Mildly diminished, greater bases, proper effort, no rales, ronchi or wheezing. Heart: Regular rate and rhythm; no gallop, rub audible. Abdomen: Soft, discomfort primarily in the right lower quadrant and right inguinal region, evident bulge with mild firmness with discomfort worse with palpation, no marked abdominal distention otherwise, hypoactive bowel sounds more prominent in the right lower and left quadrants, no obvious HSM. Extremities: No cyanosis, clubbing, or edema. Neurological: Patient awake, alert, oriented as noted, cognitive function suspect baseline intact with underlying mild cognitive impairment with Parkinson's disease; pupils equally reactive to light and accommodation, cranial nerves grossly normal, moving all 4 extremities with significant bilateral upper extremity pill-rolling tremor evident, strength moderately to severely global decrease secondary to acute presentation and underlying comorbidities. Psychiatric: Affect appears mildly flat, no acute evidence of depressive or anxiety feelings but does have underlying anxiety history. Lab / Micro Data 05/08/23 20:00 05/08/23 20:00 Labs: Laboratory Results - last 24 hr 05/08/23 20:00: WBC 8.2, RBC 4.37 L, Hgb 13.6, Hct 41.2, MCV 94.3 H, MCH 31.1, MCHC 33.0, RDW Std Deviation 45.6 H, RDW Coeff of Adrian 13.2, Plt Count 148 L, MPV 9.4, Immature Gran % (Auto) 0.200, Neut % (Auto) 77.3 H, Lymph % (Auto) 14.3 L, [place] % (Auto) 7.6, Eos % (Auto) 0.4, Baso % (Auto) 0.2, Absolute Neuts (auto) 6.3, Absolute Lymphs (auto) 1.17, Nucleated RBC % 0, Sodium 141, Potassium 4.3, Chloride 108 H, Carbon Dioxide 30.0, Anion Gap 3 L, BUN 19 H, Creatinine 1.11, Estim Creat Clear Calc 49.37, Est GFR (MDRD) Af Amer 82, Est GFR (MDRD) Non-Af 68, BUN/Creatinine Ratio 17.1, Glucose 98, Lactic Acid 1.2, Calcium 8.9, Total Bilirubin 0.50, AST 12 L, ALT 8 L, Alkaline Phosphatase 55, Total Protein 6.4, Albumin 3.3, Globulin 3.1, Albumin/Globulin Ratio 1.1, Lipase 35 Radiology Impression Abdomen/Pelvis CT 05/08/23 20:59 IMPRESSION: Partial small bowel obstruction due to involvement in a large right inguinal hernia. Large bilateral renal cortical cysts up to 10 cm. Electronically Signed: Hugh Sandoval MD at 21:55 EDT , Charges/Coding Visit Charges Office Visits / Consults: 13115 IP Consult L4 Procedures Hospitalists Procedures: 65142 Advncd Care Plan 30 Min
[2023-05-09] VITALS (11 sets, daily range): BP systolic 124–179; BP diastolic 75–92; PULSE 72–99; RESP 16–18; TEMP 36.4–37.4; O2SAT 92–97; BMI 19.3
[2023-05-09] MEDS: Lactated Ringers 1,000 ML 125 ML IV ×2 (01:08→08:05)
[2023-05-09] MEDS: Pantoprazole Sodium 40 MG in 0.9% Normal Saline (100mL MB+) 100 ML 330 MG IV ×3 (01:09→21:51)
--- NOTE | 2023-05-09 05:55 | EKG12_ITS ---
Test Reason : PRE-OP Blood Pressure : / mmHG Vent. Rate : 073 BPM Atrial Rate : 073 BPM P-R Int : 156 ms QRS Dur : 084 ms QT Int : 366 ms P-R-T Axes : 075 066 066 degrees QTc Int : 403 ms Sinus rhythm with occasional Premature ventricular complexes Otherwise normal ECG When compared with ECG of 05-JUN-2007 20:24, Premature ventricular complexes are now Present Confirmed by DEB RHODES, KAYKAY ([id number]), raise miner BELKIS CASTELLANOS ([id number]) on 05/20/2023 11:11:28 AM Referred By: Confirmed By:KHADIJAH BOYD MD
[2023-05-09 07:04] LABS: Absolute Lymphocyte Count 1.14 X10^3/uL (0.83-4.51); Absolute Neutrophil Count 4.1 X10^3/uL (2.0-7.7); Basophil# 0.03 X10^3/uL; Basophil% 0.5 % (0-1); Eosinophil# 0.05 X10^3/uL; Eosinophils% 0.9 % (0-5); Hematocrit 38.9 % (40-54); Hemoglobin 12.8 g/dL (13.0-16.5); Lymphocyte # 1.14 X10^3/ul (0.83-4.51); Lymphocyte % 19.5 % (19-41); Mean Corp Hgb Conc 32.9 g/dL (32-36); Mean Corpuscular Volume 94.2 fL (80-94); Mean Platelet Vol. 8.8 fl (6.2-12.0); Monocyte# 0.56 X10^3/uL; Monocyte% 9.6 % (0-10); NRBC Flagged by Analyzer 0 % (0-5); Neutrophil # 4.07 X10^3/uL (2.7-7.7); Neutrophil % 69.3 % (47-70); Platelet Count 131 K/mm3 (150-450); RBC Distribution Width CV 13.2 % (11.6-14.6); RBC Distribution Width SD 45.2 fl (35.1-43.9); Red Blood Count 4.13 M/mm3 (4.6-6.2); White Blood Count 5.9 K/mm3 (4.4-11.0)
[2023-05-09 07:28] LABS: Anion Gap 4 (5-15); BUN 15 mg/dL (7-18); BUN/Creat Ratio 14.3 RATIO (10-20); Calcium,Total 8.7 mg/dL (8.5-10.1); Chloride 109 mmol/L (98-107); Creatinine, Serum 1.05 mg/dL (0.70-1.30); EST Glomerular Filtration Rate 73 mL/min (>60); Est Glom Filt Rate - Afr Amer 88 mL/min (>60); Estimated Creatinine Clearance 50.03 ml/min; Glucose 81 mg/dL (74-106); Magnesium 1.8 mg/dL (1.6-2.6); Phosphorus 2.2 mg/dL (2.5-4.9); Potassium 4.3 mmol/L (3.5-5.1); Sodium Level 142 mmol/L (136-145)
--- NOTE | 2023-05-09 08:31 | PN.SURG_ITS ---
Subjective Subjective Patient seen and examined during AM rounds. He reports that he feels like a new man. By this he denies any abdominal pain. Objective Data Objective Data Vital Signs: Vital Signs Temp Pulse Resp BP Pulse Ox O2 Del Method 97.9 F 72 18 140/78 H 95 Room Air 05/09/23 06:36 05/09/23 06:36 05/09/23 06:36 05/09/23 06:36 05/09/23 06:36 05/09/23 06:36 Oxygen Delivery Method Room Air Weight: 134 lb 7.712 oz Body Mass Index (BMI) 19.3 Intake & Output: Intake and Output for Last 24 Hours 05/07/23 05/08/23 05/09/23 23:59 23:59 23:59 Intake Total 978.75 / 978.75 Balance 978.75 / 978.75 Lab / Micro Data 05/09/23 06:06 05/09/23 06:06 Labs: Laboratory Results - last 24 hr 05/08/23 20:00: WBC 8.2, RBC 4.37 L, Hgb 13.6, Hct 41.2, MCV 94.3 H, MCH 31.1, MCHC 33.0, RDW Std Deviation 45.6 H, RDW Coeff of Adrian 13.2, Plt Count 148 L, MPV 9.4, Immature Gran % (Auto) 0.200, Neut % (Auto) 77.3 H, Lymph % (Auto) 14.3 L, [place] % (Auto) 7.6, Eos % (Auto) 0.4, Baso % (Auto) 0.2, Absolute Neuts (auto) 6.3, Absolute Lymphs (auto) 1.17, Nucleated RBC % 0, Sodium 141, Potassium 4.3, Chloride 108 H, Carbon Dioxide 30.0, Anion Gap 3 L, BUN 19 H, Creatinine 1.11, Estim Creat Clear Calc 49.37, Est GFR (MDRD) Af Amer 82, Est GFR (MDRD) Non-Af 68, BUN/Creatinine Ratio 17.1, Glucose 98, Lactic Acid 1.2, Calcium 8.9, Total Bilirubin 0.50, AST 12 L, ALT 8 L, Alkaline Phosphatase 55, Total Protein 6.4, Albumin 3.3, Globulin 3.1, Albumin/Globulin Ratio 1.1, Lipase 35 05/09/23 06:06: WBC 5.9, RBC 4.13 L, Hgb 12.8 L, Hct 38.9 L, MCV 94.2 H, MCH 31.0, MCHC 32.9, RDW Std Deviation 45.2 H, RDW Coeff of Adrian 13.2, Plt Count 131 L, MPV 8.8, Immature Gran % (Auto) 0.200, Neut % (Auto) 69.3, Lymph % (Auto) 19.5, [place] % (Auto) 9.6, Eos % (Auto) 0.9, Baso % (Auto) 0.5, Absolute Neuts (auto) 4.1, Absolute Lymphs (auto) 1.14, Nucleated RBC % 0, Sodium 142, Potassium 4.3, Chloride 109 H, Carbon Dioxide 29.0, Anion Gap 4 L, BUN 15, Creatinine 1.05, Estim Creat Clear Calc 50.03, Est GFR (MDRD) Af Amer 88, Est GFR (MDRD) Non-Af 73, BUN/Creatinine Ratio 14.3, Glucose 81, Calcium 8.7, Phosphorus 2.2 L, Magnesium 1.8 Radiography Diagnostic Testing: Radiology Impression Abdomen/Pelvis CT 05/08/23 20:59 IMPRESSION: Partial small bowel obstruction due to involvement in a large right inguinal hernia. Large bilateral renal cortical cysts up to 10 cm. Electronically Signed: Hugh Sandoval MD at 21:55 EDT Reading Location ID and State: [address] [place] [address] Tel , Service support , Physical Exam Const oriented x3 and no apparent distress Resp normal respiratory effort GI GI Narrative: Nondistended, soft, nontender to palpation Narrative: No evidence of recurrent groin bulge Assessment & Plan Assessment/Plan (1) Incarcerated right inguinal hernia: PLAN: This is a 77-year-old male who presented to the hospital with signs and symptoms of an incarcerated right inguinal hernia that was able to be reduced in the emergency department yesterday. However, given this incarceration event and reports of a possible partial small bowel obstruction, I recommended same admission inguinal hernia repair. We will plan to proceed to the operating room later today for open right inguinal hernia repair with mesh placement. Procedure and post procedure expectations were reviewed with patient and son. Charges/Coding Visit Charges Inpatient E&M: 17161 Init Hosp L2
--- NOTE | 2023-05-09 10:07 | PCM.PN.HOSP ---
Reason for Visit Reason for Visit: Diagnoses Unilateral inguinal hernia, with obstruction, without gangrene, not specified as recurrent (05/08/23) Subjective Subjective Patient is a 77-year-old gentleman who presented with an incarcerated right inguinal hernia. Patient was admitted to the surgical service the hospitalist service consulted to assist with management of patient medical comorbidities Objective Data Objective Data Vital Signs: Vital Signs Temp Pulse Resp BP Pulse Ox O2 Del Method 97.9 F 72 18 140/78 H 96 Room Air 05/09/23 06:36 05/09/23 06:36 05/09/23 06:36 05/09/23 06:36 05/09/23 07:38 05/09/23 08:05 Oxygen Delivery Method Room Air Weight: 61 kg Body Mass Index (BMI) 19.3 Intake & Output: Intake and Output for Last 24 Hours 05/07/23 05/08/23 05/09/23 23:59 23:59 23:59 Intake Total 978.75 / 978.75 Balance 978.75 / 978.75 Lab / Micro Data 05/09/23 06:06 05/09/23 06:06 Labs: Laboratory Results - last 24 hr 05/08/23 20:00: WBC 8.2, RBC 4.37 L, Hgb 13.6, Hct 41.2, MCV 94.3 H, MCH 31.1, MCHC 33.0, RDW Std Deviation 45.6 H, RDW Coeff of Adrian 13.2, Plt Count 148 L, MPV 9.4, Immature Gran % (Auto) 0.200, Neut % (Auto) 77.3 H, Lymph % (Auto) 14.3 L, [place] % (Auto) 7.6, Eos % (Auto) 0.4, Baso % (Auto) 0.2, Absolute Neuts (auto) 6.3, Absolute Lymphs (auto) 1.17, Nucleated RBC % 0, Sodium 141, Potassium 4.3, Chloride 108 H, Carbon Dioxide 30.0, Anion Gap 3 L, BUN 19 H, Creatinine 1.11, Estim Creat Clear Calc 49.37, Est GFR (MDRD) Af Amer 82, Est GFR (MDRD) Non-Af 68, BUN/Creatinine Ratio 17.1, Glucose 98, Lactic Acid 1.2, Calcium 8.9, Total Bilirubin 0.50, AST 12 L, ALT 8 L, Alkaline Phosphatase 55, Total Protein 6.4, Albumin 3.3, Globulin 3.1, Albumin/Globulin Ratio 1.1, Lipase 35 05/09/23 06:06: WBC 5.9, RBC 4.13 L, Hgb 12.8 L, Hct 38.9 L, MCV 94.2 H, MCH 31.0, MCHC 32.9, RDW Std Deviation 45.2 H, RDW Coeff of Adrian 13.2, Plt Count 131 L, MPV 8.8, Immature Gran % (Auto) 0.200, Neut % (Auto) 69.3, Lymph % (Auto) 19.5, [place] % (Auto) 9.6, Eos % (Auto) 0.9, Baso % (Auto) 0.5, Absolute Neuts (auto) 4.1, Absolute Lymphs (auto) 1.14, Nucleated RBC % 0, Sodium 142, Potassium 4.3, Chloride 109 H, Carbon Dioxide 29.0, Anion Gap 4 L, BUN 15, Creatinine 1.05, Estim Creat Clear Calc 50.03, Est GFR (MDRD) Af Amer 88, Est GFR (MDRD) Non-Af 73, BUN/Creatinine Ratio 14.3, Glucose 81, Calcium 8.7, Phosphorus 2.2 L, Magnesium 1.8 Radiography Diagnostic Testing: Radiology Impression Abdomen/Pelvis CT 05/08/23 20:59 IMPRESSION: Partial small bowel obstruction due to involvement in a large right inguinal hernia. Large bilateral renal cortical cysts up to 10 cm. Electronically Signed: Hugh Sandoval MD at 21:55 EDT , Physical Exam Narrative GENERAL: cooperative HEENT: Atraumatic; normocephalic EYES; Anicteric, Normal Conjunctiva NECK; supple, normal thyroid, RESPIRATORY: Diminished to auscultation CARDIOVASCULAR: Regular S1 S2, GI: Nondistended nontender : No Renal angle tenderness; EXTREMITIES: No edema, no clubbing, MUSCULOSKELETAL: no muscle wasting NEURO: Awake; no lateralizing signs. SKIN: No Rash PSYCH; Flat affect Assessment & Plan Assessment/Plan (1) Incarcerated right inguinal hernia: PLAN: Plan Patient is a 77-year-old gentleman who presented with an incarcerated right inguinal hernia. Patient was admitted to the surgical service the hospitalist service consulted to assist with management of patient medical comorbidities 1. Incarcerated right inguinal hernia ? Patient has been admitted to the surgical service currently being managed with bowel rest pain meds. Decision regarding surgical intervention deferred to general surgery 2. Bilateral renal cholic acid ? Noted on CT plan is for Patient to follow-up with PCP for serial monitoring 3. Hypertension - Blood pressure controlled, home medications continued with dose adjustment as needed 4. Parkinson's disease ? Patient is on Sinemet continue 5. Dyslipidemia -Patient is on statin therapy, continued at home dose 6. BPH ? Patient is on tamsulosin 7. DVT prophylaxis ? We will defer to primary service Time spent in the patient's overall evaluation,decision-making process, review of diagnostic data, adjustment of management, discussion with other providers, nursing nursing and ancillary staff involved in patient's care documentation, 50 Minutes Charges/Coding Visit Charges Inpatient E&M: 94007 [facility] L3
--- NOTE | 2023-05-09 11:00 | CASEMGMT ---
RN?CM?CHILDCARE ATTENDANT?CM?to room to meet with patient for initial transition planning/care coordination?assessment.?RN?CM?introduced self and role at [facility].? Pt voices understanding and consents to?assessment?at this time.? Pt resting in bed in no distress at this time. Son, Javier, @ bedside.? Pt is A/O at this time and answers most questions appropriately.??Son did have to clarify a few questions. Care providers, pharmacy, and demographics verified/updated at this time. PCP: Dr Sams Specialists:Dr Irizarry-neurology for Parkinson's--has an upcoming appt on 05/23 per son. Preferred Pharmacy: [facility] Insurance: [facility] A/B Prescription Benefit:?None. Son states uses [employer] savings card. Living Will/HPOA:? Pt does not currently have LW/HCPOA and declines info at this time.? Pt made aware that he can contact as an out-pt and make appt in the future if he decides he would like to talk with someone about this or would like to utilize [facility] social work for advanced directive completion. LNOK: , Emma. One son, Javier Living Arrangements: Lives w/ in ranch-style home w/one step to enter. Pt does not have to go to the basement. Pt lives w/, who is bedridden, and pt takes care of her. Per son, she has been bedridden for about 5 years. Pt is independent w/ADL's, IADL's, and manages his own medications. Son assists as needed. Transportation:?Pt told RN NEO that he drives, but per son, pt does not drive anymore. Son provided transportation. DME: ?Pt has the following DME:?shower chair, RTS, walker ?Pt and son states no need for further DME at this time.? HHC/SNF: No hx of SNF. Has had [facility] HHC in the past. Discussed discharge planning. Pt wishes to return home. He declines wanting HHC or OP therapy. Discussed several resources in the home. They were provided w/private-duty aide list, medical alert info, and [facility] Home visiting physician info. Pt and son deny having needs or concerns. Pt wishes to return home and states has no concerns with going home at time of discharge.?CM?to follow for any further discharge planning/needs.? Pt and son voice no further concerns/needs at this time.? Advised them to ask for?CM?if any further questions/concerns/needs arise.? They voice understanding. PLAN:??Home Nadia BSN?RN?CM
--- NOTE | 2023-05-09 14:30 | HERN_PTH ---
PATIENT: RAFAEL CHAVEZ LOC: [facility] U#:[id number] AGE/SX: 77/M ROOM: [facility] RE05/08/[address]: Dr. Maikel Serrano MD : [id number] BED: 1 DIS: 05/10/2023 SPEC #: [id number] RECD: 05/09/23 18:29 STATUS: ARTHUR THOMAS #: [id number] DARA: 05/09/23 14:[address]: Nick Aguirre DEPT: SURGICAL PATHOLOGY RECD BY: Kary Solitario ENTERED: 05/10/23 08:07 SP TYPE: Hernia OTHR DR: MD Dr. Zoey Lee MD Dr. David Kittoe, MD Tissues: A - HERNIA B - HERNIA Procedures: Surgery Specimen Level II Comments: @ Ordering doctor for SUII edited from to @ by CHRISSYOD at 05/10/23 144 @ Submitting doctor edited from to @ by RGOOD at 05/10/23 1441 HEADER OPERATION: Inguinal hernia with mesh PRE-OP DIAGNOSIS: Incarcerated right inguinal hernia TISSUE SUBMITTED: A - Right inguinal hernia cord lipoma, B - Right inguinal hernia sac MICROSCOPIC DIAGNOSIS A - Right inguinal hernia cord lipoma, excision: Mature adipose tissue, favor lipoma. B - Right inguinal hernia sac A piece of fibroadipose and fibroconnective tissue, consistent with hernia sac with chronic inflammation and reactive changes. SJ: 05/13/2023 MICROSCOPIC DESCRIPTION Slides are reviewed. GROSS DESCRIPTION A. Received in fixative is one container labeled with the patient's name and designated right inguinal hernia cord lipoma.' The specimen consists of two pieces of yellow adipose tissue measuring 5.0 x 2.0 x 0.5 cm and 2.0 x 1.0 x 0.3 cm. Sections reveal yellow adipose cut surfaces without area of hemorrhage necrosis or cystic degeneration. Top Precipitator Operator Helper sections are submitted in one cassette. B. Received I fixative is one container labeled with the patient's name and designated right inguinal hernia sac. The specimen consists of a piece of congested, lewis-pink soft tissue measuring 7.5 x 3.5 x 0.6 cm. No mass lesion is identified. Top Precipitator Operator Helper of sections are submitted in one cassette. /SJ:belen 05/10/2023 TC:5 CPT:17746, 03924
--- NOTE | 2023-05-09 14:40 | NURSING ---
dr agustin had pt's son give pt metoprolol 25mg po and sinemet 1 tab po with a sip of water prior to surgery - this info given to PCU charge nurse
[2023-05-09] MEDS: Cefazolin 2 GM in 0.9% Normal Saline (100mL Bag) 100 ML IV (15:07)
[2023-05-09] MEDS: Bupivacaine 0.25% 30 ML Vial (17:44)
--- NOTE | 2023-05-09 17:47 | OP.PCM_ITS ---
Report of Operation Date of Procedure: 05/09/23 Pre-Operative Diagnosis: Previously incarcerated right inguinal hernia status p ost reduction Post-Operative Diagnosis: Same Surgery/Procedure Performed:: Open, Mayela type, repair of right inguinal hernia with mesh Description of Surgical Findings:: Moderately large indirect right inguinal hernia with weak but intact inguinal floor Surgeon: Nick Aguirre continuous still operator: Brigida Lee Type of Anesthesia: General/Supplemental Anesthesiologist: Tae Cantu Specimen's removed: 1. Hernia sac 2. Cord lipoma Estimated Blood Loss (mL): 30 Description of Procedure: dense scarring, preserved right ilioinguinal nerve After appropriate identification in the preoperative holding area and confirmation of consents patient was brought to the operating room and positioned supine on the operating room table. There he was induced with a general anesthetic and preoperative antibiotics were begun. Patient's operative site was confirmed and the lower abdomen and upper pelvis were then sterilely p repped and draped in usual standard fashion. A formal timeout followed to confirm patient and the procedure. Procedure was begun with a oblique 8 cm incision extending from just superior and lateral to the pubic tubercle laterally towards the notch of the anterior superior iliac spine. This was extended deeply through the subcutaneous tissues with use of electrocautery. A crossing vein was divided with electrocautery. As we sought the external oblique apneurosis the only thing we saw immediately was an attenuated layer that actually represented Radha's fascia. Once I had open this area and found additional subcutaneous tissue and the fibers of the external oblique aponeurosis I placed a wound retractor and the external oblique aponeurosis was opened in the orientation of its fibers after bluntly spreading beneath. The ilioinguinal nerve was identified and sharply from the surrounding soft tissue and excluded with the lower leaflet of the aponeurosis. Then the cord was bluntly from the inguinal canal. It was placed within a [place] drain and retracted laterally. With some sweeping motions of the remaining adherent cremasteric fibers were able to visualize the pubic tubercle medially. The inguinal canal was briefly examined and the floor was felt to be attenuated but intact. We then explored the cord contents for signs of a hernia sac and an indirect hernia sac was identified and tediously removed from the underlying contents of the spermatic cord due to significant scarring and adhesions. Apart from the structures of the spermatic cord we identified a smaller cord lipoma. This latter structure was carefully dissected off the spermatic cord and removed with electrocautery for pathologic specimen labeled cord lipoma. Additional dissection was used to fully remove the inguinal hernia sac from the spermatic cord and dissected back to the level of the internal inguinal ring. The hernia sac was then opened and a pursestring was placed about the more proximal extent of the hernia sac while amputating the distal majority of the sac with electrocautery. Then to facilitate mesh placement I placed a running 2-0 Ethibond sutures to approximate the falx inguinalis to the area of the iliopubic tract in order to reinforce the integrity of the inguinal canal floor. With this inguinal canal floor reinforced I requested a Davol keyhole mesh. This mesh was first tacked to the periosteum of the pubic tubercle in an interrupted fashion using Ethibond suture. Then the mesh was fixed to the floor of the inguinal canal along the shelving edge laterally and inferiorly as well as to the internal oblique fibers medially and superiorly. The [place] drain was removed and spermatic cord was returned to the inguinal canal. Hemostasis was confirmed. Then the tails of the mesh were placed about the cord and approximated with a [id number] Ethibond suture such that there was space enough to accommodate a fingertip. The external oblique was closed in a running fashion using 3-0 Vicryl. To close down the space I then used a second 3-0 Vicryl running suture to reapproximate Radha's fascia. The wound was copiously irrigated and hemostasis was verified. A series of interrupted deep dermal sutures were used to approximate the wound. Additional local anesthetic was infiltrated about the wound edges for a total volume of 30 mL 0.25% bupivacaine. Finally a 4-0 Monocryl was used to perform a subcuticular suture to reapproximate the skin. Steri-Strips and a OpSite dressing were applied. Patient was awoken from genera l anesthetic and taken to PACU for ongoing recovery. Grafts/Implants Used: Davol 10 cm x 4.5 cm keyhole mesh, lot [id number] Complications None Admit VTE Documentation VTE Mechan Device Prophylaxis: SCD's Procedures Digestive 40xxx-49xxx: 95379 Prp i/anh init reduc >5 yr
[2023-05-09] MEDS: Lactated Ringers 1,000 ML 100 ML IV (20:18)
--- NOTE | 2023-05-09 21:45 | NURSING ---
Bladder scanned for 425 then 615, Straight cathed and got 675 out
[2023-05-09] MEDS: Carbidopa/Levodopa 25/100 Tablet PO (21:55)
[2023-05-10 00:20] VITALS: BP 153/84; PULSE 94; RESP 16; TEMP 37; O2SAT 95
--- NOTE | 2023-05-10 02:30 | NURSING ---
Bladder scanned at 320
[2023-05-10 04:29] VITALS: BP 158/87; PULSE 84; RESP 16; TEMP 36.3; O2SAT 97
[2023-05-10] MEDS: Lactated Ringers 1,000 ML 100 ML IV (04:38)
[2023-05-10] MEDS: Carbidopa/Levodopa 25/100 Tablet PO ×2 (06:00→11:53)
[2023-05-10 07:20] LABS: Absolute Lymphocyte Count 0.77 X10^3/uL (0.83-4.51); Absolute Neutrophil Count 6.6 X10^3/uL (2.0-7.7); Basophil# 0.02 X10^3/uL; Basophil% 0.2 % (0-1); Eosinophil# 0.01 X10^3/uL; Eosinophils% 0.1 % (0-5); Hematocrit 37.2 % (40-54); Hemoglobin 12.1 g/dL (13.0-16.5); Lymphocyte # 0.77 X10^3/ul (0.83-4.51); Lymphocyte % 9.4 % (19-41); Mean Corp Hgb Conc 32.5 g/dL (32-36); Mean Corpuscular Hgb 30.5 pg (27.0-32.0); Mean Corpuscular Volume 93.7 fL (80-94); Monocyte# 0.84 X10^3/uL; Monocyte% 10.2 % (0-10); NRBC Flagged by Analyzer 0 % (0-5); Neutrophil # 6.57 X10^3/uL (2.7-7.7); Neutrophil % 79.9 % (47-70); Platelet Count 126 K/mm3 (150-450); RBC Distribution Width CV 13.1 % (11.6-14.6); RBC Distribution Width SD 44.9 fl (35.1-43.9); Red Blood Count 3.97 M/mm3 (4.6-6.2); White Blood Count 8.2 K/mm3 (4.4-11.0)
--- NOTE | 2023-05-10 07:29 | PCM.PN.HOSP ---
Reason for Visit Reason for Visit: Diagnoses Unilateral inguinal hernia, with obstruction, without gangrene, not specified as recurrent (05/08/23) Subjective Subjective Patient underwent repair of right inguinal hernia with mesh on 05/09/[address] Nick Aguirre. Patient seen this morning remains stable Objective Data Objective Data Vital Signs: Vital Signs Temp Pulse Resp BP Pulse Ox O2 Del Method 97.4 F L 84 16 158/87 H 97 Room Air 05/10/23 04:29 05/10/23 04:29 05/10/23 04:29 05/10/23 04:29 05/10/23 04:29 05/10/23 04:29 Oxygen Delivery Method Room Air Weight: 61 kg Body Mass Index (BMI) 19.3 Intake & Output: Intake and Output for Last 24 Hours 05/08/23 05/09/23 05/10/23 23:59 23:59 23:59 Intake Total 2783.75 / 2783.75 833.33 / 833.33 Output Total 675 / 675 275 / 275 Balance 2108.75 / 2108.75 558.33 / 558.33 Lab / Micro Data 05/10/23 06:27 05/10/23 06:27 Labs: Laboratory Results - last 24 hr 05/10/23 06:27: WBC 8.2, RBC 3.97 L, Hgb 12.1 L, Hct 37.2 L, MCV 93.7, MCH 30.5, MCHC 32.5, RDW Std Deviation 44.9 H, RDW Coeff of Adrian 13.1, Plt Count 126 L, MPV 9.0, Immature Gran % (Auto) 0.200, Neut % (Auto) 79.9 H, Lymph % (Auto) 9.4 L, [place] % (Auto) 10.2 H, Eos % (Auto) 0.1, Baso % (Auto) 0.2, Absolute Neuts (auto) 6.6, Absolute Lymphs (auto) 0.77 L, Nucleated RBC % 0 Physical Exam Narrative GENERAL: cooperative HEENT: Atraumatic; normocephalic EYES; Anicteric, Normal Conjunctiva NECK; supple, normal thyroid, RESPIRATORY: Diminished to auscultation CARDIOVASCULAR: Regular S1 S2, GI: Nondistended nontender : No Renal angle tenderness; EXTREMITIES: No edema, no clubbing, MUSCULOSKELETAL: no muscle wasting NEURO: Awake; no lateralizing signs. SKIN: No Rash PSYCH; Flat affect Assessment & Plan Assessment/Plan (1) Incarcerated right inguinal hernia: PLAN: Plan Patient is a 77-year-old gentleman who presented with an incarcerated right inguinal hernia. Patient was admitted to the surgical service the hospitalist service consulted to assist with management of patient medical comorbidities 1. Incarcerated right inguinal hernia ? Patient has been admitted to the surgical service currently being managed with bowel rest pain meds. Decision regarding surgical intervention deferred to general surgery ? 05/10/2023 ; Patient underwent repair of right inguinal hernia with mesh on 05/09/[address] Nick Aguirre. 2. Bilateral renal cholic acid ? Noted on CT plan is for Patient to follow-up with PCP for serial monitoring 3. Hypertension - Blood pressure controlled, home medications continued with dose adjustment as needed 4. Parkinson's disease ? Patient is on Sinemet continue 5. Dyslipidemia -Patient is on statin therapy, continued at home dose 6. BPH ? Patient is on tamsulosin 7. DVT prophylaxis ? We will defer to primary service Time spent in the patient's overall evaluation,decision-making process, review of diagnostic data, adjustment of management, discussion with other providers, nursing nursing and ancillary staff involved in patient's care documentation, 35 Minutes Charges/Coding Visit Charges Inpatient E&M: 31771 Subs Hosp L2
[2023-05-10 07:53] LABS: Anion Gap 4 (5-15); BUN 14 mg/dL (7-18); BUN/Creat Ratio 13.1 RATIO (10-20); Calcium,Total 8.5 mg/dL (8.5-10.1); Chloride 107 mmol/L (98-107); Creatinine, Serum 1.07 mg/dL (0.70-1.30); EST Glomerular Filtration Rate 71 mL/min (>60); Est Glom Filt Rate - Afr Amer 86 mL/min (>60); Estimated Creatinine Clearance 49.09 ml/min; Glucose 104 mg/dL (74-106); Magnesium 1.5 mg/dL (1.6-2.6); Phosphorus 2.3 mg/dL (2.5-4.9); Sodium Level 138 mmol/L (136-145)
[2023-05-10 08:20] VITALS: BP 153/91; PULSE 100; RESP 18; TEMP 36.3; O2SAT 95
--- NOTE | 2023-05-10 08:24 | PCM.PN.SRG ---
Subjective Subjective Patient seen and examined during AM rounds. He is found resting comfortably in bed. He states that much of the swelling he experienced postop is improved already. He confirms that he is urinating frequently. He also confirms an appetite and denies any abdominal discomfort. He reports that he has been passing flatus but has not had a bowel movement. Objective Data Objective Data Vital Signs: Vital Signs Temp Pulse Resp BP Pulse Ox O2 Del Method 97.4 F L 84 16 158/87 H 97 Room Air 05/10/23 04:29 05/10/23 04:29 05/10/23 04:29 05/10/23 04:29 05/10/23 04:29 05/10/23 04:29 Oxygen Delivery Method Room Air Weight: 134 lb 7.712 oz Body Mass Index (BMI) 19.3 Intake & Output: Intake and Output for Last 24 Hours 05/08/23 05/09/23 05/10/23 23:59 23:59 23:59 Intake Total 2783.75 / 2783.75 833.33 / 833.33 Output Total 675 / 675 275 / 275 Balance 2108.75 / 2108.75 558.33 / 558.33 Lab / Micro Data 05/10/23 06:27 05/10/23 06:27 Labs: Laboratory Results - last 24 hr 05/10/23 06:27: WBC 8.2, RBC 3.97 L, Hgb 12.1 L, Hct 37.2 L, MCV 93.7, MCH 30.5, MCHC 32.5, RDW Std Deviation 44.9 H, RDW Coeff of Adrian 13.1, Plt Count 126 L, MPV 9.0, Immature Gran % (Auto) 0.200, Neut % (Auto) 79.9 H, Lymph % (Auto) 9.4 L, [place] % (Auto) 10.2 H, Eos % (Auto) 0.1, Baso % (Auto) 0.2, Absolute Neuts (auto) 6.6, Absolute Lymphs (auto) 0.77 L, Nucleated RBC % 0, Sodium 138, Potassium 4.0, Chloride 107, Carbon Dioxide 27.0, Anion Gap 4 L, BUN 14, Creatinine 1.07, Estim Creat Clear Calc 49.09, Est GFR (MDRD) Af Amer 86, Est GFR (MDRD) Non-Af 71, BUN/Creatinine Ratio 13.1, Glucose 104, Calcium 8.5, Phosphorus 2.3 L, Magnesium 1.5 L Physical Exam Const oriented x3 and no apparent distress Resp normal respiratory effort Narrative: Surgical site with mild edema but no significant tenderness. There is not appear to be any underlying bulging or concern for hematoma formation. Assessment & Plan Assessment/Plan (1) Incarcerated right inguinal hernia: PLAN: This is a 77-year-old male who presented to the hospital with signs and symptoms of an incarcerated right inguinal hernia that was able to be reduced in the emergency department. He is now postoperative day 1 from open right inguinal hernia repair with mesh. He appears to be doing well this first day after surgery and has minimal discomfort. The surgical site appears appropriate. He continues to be without any signs of obstructive symptoms. Therefore, I recommend Hep-Lock in his IV and advancing to regular diet. If he tolerates this change then would recommend discharge home with outpatient follow-up with general surgery in 10 to 14 days. Lifting restrictions have been given to patient but would include no lifting greater than 10 pounds for 5 weeks postop. He is advised to continue icing his right groin for full 48 hours postop and then may discontinue the bandage at that time as well. Charges/Coding Visit Charges Inpatient E&M: 19710 Subs Hosp L2
[2023-05-10 09:18] VITALS: O2SAT 93
[2023-05-10 09:24] VITALS: PULSE 100
[2023-05-10] MEDS: Metoprolol Tartrate 25 MG Tablet PO (09:24)
[2023-05-10] MEDS: Pantoprazole Sodium 40 MG in 0.9% Normal Saline (100mL MB+) 100 ML 330 MG IV (09:24)
[2023-05-10] MEDS: Tamsulosin HCl 0.4 MG Capsule PO (09:24)
--- NOTE | 2023-05-10 10:39 | PCM.DC.SUM ---
Providers Date of Admission: 05/08/23 Date of Discharge: 05/10/23 Primary Care Physician: Dr. Brittni Sams MD Reason For Visit: INCARCERATED INGUINAL HERNIA Diagnosis Discharge Diagnosis (1) Incarcerated right inguinal hernia: Status: Acute Code(s): K40.30 - Unilateral inguinal hernia, with obstruction, without gangrene, not specified as recurrent Plan Patient is a 77-year-old gentleman who presented with an incarcerated right inguinal hernia. Patient was admitted to the surgical service the hospitalist service consulted to assist with management of patient medical comorbidities 1. Incarcerated right inguinal hernia ? Patient has been admitted to the surgical service currently being managed with bowel rest pain meds. Decision regarding surgical intervention deferred to general surgery ? 05/10/2023 ; Patient underwent repair of right inguinal hernia with mesh on 05/09/[address] Nick Aguirre. 2. Bilateral renal cholic acid ? Noted on CT plan is for Patient to follow-up with PCP for serial monitoring 3. Hypertension - Blood pressure controlled, home medications continued with dose adjustment as needed 4. Parkinson's disease ? Patient is on Sinemet continue 5. Dyslipidemia -Patient is on statin therapy, continued at home dose 6. BPH ? Patient is on tamsulosin 7. DVT prophylaxis ? We will defer to primary service Time spent in the patient's overall evaluation,decision-making process, review of diagnostic data, adjustment of management, discussion with other providers, nursing nursing and ancillary staff involved in patient's care documentation, 35 Minutes Medications at Discharge Home Medications hydrocodone 5 mg-acetaminophen 500 mg tablet 1 tab PO Q6H PRN PRN pain 06/17/18 tamsulosin 0.4 mg capsule 0.4 mg PO DAILY #90 caps 07/13/22 simvastatin 40 mg tablet 40 mg PO QHS #90 tabs 11/27/22 carbidopa 25 mg-levodopa 100 mg tablet 1 tab PO .COMPLEX #90 tabs 01/14/23 metoprolol tartrate 25 mg tablet 25 mg PO BID #180 tabs 02/04/23 Hospital Course Summary of Care Provided Minutes Spent on Discharge: 35 Physical Exam Narrative GENERAL: cooperative HEENT: Atraumatic; normocephalic EYES; Anicteric, Normal Conjunctiva NECK; supple, normal thyroid, RESPIRATORY: Diminished to auscultation CARDIOVASCULAR: Regular S1 S2, GI: Nondistended nontender : No Renal angle tenderness; EXTREMITIES: No edema, no clubbing, MUSCULOSKELETAL: no muscle wasting NEURO: Awake; no lateralizing signs. SKIN: No Rash PSYCH; Flat affect Weight / BMI Weight Weight: 61 kg Body Mass Index (BMI) 19.3 ABG / Lab / Microbiology Data 05/10/23 06:27 05/10/23 06:27 Laboratory: Laboratory Results - last 24 hr 05/10/23 06:27: WBC 8.2, RBC 3.97 L, Hgb 12.1 L, Hct 37.2 L, MCV 93.7, MCH 30.5, MCHC 32.5, RDW Std Deviation 44.9 H, RDW Coeff of Adrian 13.1, Plt Count 126 L, MPV 9.0, Immature Gran % (Auto) 0.200, Neut % (Auto) 79.9 H, Lymph % (Auto) 9.4 L, [place] % (Auto) 10.2 H, Eos % (Auto) 0.1, Baso % (Auto) 0.2, Absolute Neuts (auto) 6.6, Absolute Lymphs (auto) 0.77 L, Nucleated RBC % 0, Sodium 138, Potassium 4.0, Chloride 107, Carbon Dioxide 27.0, Anion Gap 4 L, BUN 14, Creatinine 1.07, Estim Creat Clear Calc 49.09, Est GFR (MDRD) Af Amer 86, Est GFR (MDRD) Non-Af 71, BUN/Creatinine Ratio 13.1, Glucose 104, Calcium 8.5, Phosphorus 2.3 L, Magnesium 1.5 L D/C Instructions Discharge Diet: Soft diet Discharge Activity: Return to Normal Activity Lifting Restricted to (Lbs): 10 Lifting Restrictions: 10 pounds for 5 weeks. Call your doctor if you observe: Fever of 101 or Higher, Shortness of breath, Fainting spells and Chest pain Meaningful Use Info Meaningful Use Diagnoses (Choose all that apply): None applicable Discharge Plan Admission Admit Date/Time: 05/08/23 22:36 Attending Provider: Maikel Serrano Primary Care Provider: Brittni Sams Consulting Providers: Zoey Yoder Instructions Additional Instructions / Restrictions: ? No lifting greater than 10 pounds for 5 weeks postop ? Please remove bandage at 48 hours postop and begin showering ? Continue icing for full 48 hours postop Discharge Orders/Prescriptions Prescriptions: Continued hydrocodone 5 mg-acetaminophen 500 mg tablet 5-500 mg tablet 1 tab PO Q6H PRN PRN (Reason: pain) tamsulosin 0.4 mg capsule 0.4 mg PO DAILY Qty: 90 3RF carbidopa-levodopa 25-100 mg tablet 1 tab PO .COMPLEX Qty: 90 5RF Rx Instructions: 1 Tab PO daily for one week then 1 tab BID for one week then 1 tab TID thereafter simvastatin 40 mg tablet 40 mg PO QHS Qty: 90 3RF metoprolol tartrate 25 mg tablet 25 mg PO BID Qty: 180 3RF Referrals / Follow Up: Brittni Sams MD [Primary Care Provider] - Within 2 Weeks Nick Aguirre MD [Med Staff - Active Staff] - (10-14 days for wound check) Disposition Disposition (needs filled in before D/C Order can be placed): Home, Self Care Charges/Coding Visit Charges Inpatient E&M: 92585 Disch Hosp >30min
--- NOTE | 2023-05-10 11:46 | PHA.DC.MR.R ---
Pharmacy [place] Med Reconciliation Pharmacy Service has performed discharge medication reconciliation for this patient. The patient's discharge medication list was reviewed for discrepancies and discrepancies were resolved. Medications at Discharge Home Medications hydrocodone 5 mg-acetaminophen 500 mg tablet 1 tab PO Q6H PRN PRN pain 06/17/18 tamsulosin 0.4 mg capsule 0.4 mg PO DAILY #90 caps 07/13/22 simvastatin 40 mg tablet 40 mg PO QHS #90 tabs 11/27/22 carbidopa 25 mg-levodopa 100 mg tablet 1 tab PO .COMPLEX #90 tabs 01/14/23 metoprolol tartrate 25 mg tablet 25 mg PO BID #180 tabs 02/04/23
[2023-05-10] MEDS: Ibuprofen 400 MG Tablet PO (11:53)
[2023-05-10 12:20] VITALS: BP 138/84; PULSE 87; RESP 18; TEMP 36.6; O2SAT 94
--- NOTE | 2023-05-10 14:23 | CASEMGMT ---
Patient has order for discharge. ROBERT CM in to discuss discharge needs with patient and son. Patient and son deny needs at discharge. RN CM informed patient to follow up with PCP should he reconsider therapy or needs in the home. Patient and son voiced understanding. Patient and son had no further questions or concerns at this time.
== END 2023-05-10 14:28 | disposition home or self-care (01) | DRG 352 ==
LOC: ED 22:39 → PCU 22:47
PROVIDERS: Surgery; Admitting Provider Family Medicine; Emergency Provider Student in an Organized Health Care Education/Training Program; PCP Family Medicine; Visit Provider Internal Medicine
PROC: 0YU50JZ Supplement Right Inguinal Region with Synthetic Substitute, Open Approach (ICD-10-PCS; principal; 2023-05-09 14:15)
DX: K40.30 Unilateral inguinal hernia, with obstruction, without gangrene, not specified as recurrent (principal); E78.5 Hyperlipidemia, unspecified; G20.C Parkinsonism, unspecified; I10 Essential (primary) hypertension; I25.10 Atherosclerotic heart disease of native coronary artery without angina pectoris; Z87.891 Personal history of nicotine dependence; N28.1 Cyst of kidney, acquired; N40.0 Benign prostatic hyperplasia without lower urinary tract symptoms
CPT/HCPCS: 36415; 74177; 80048; 80053; 83605; 83690; 83735; 84100; 85025; 88302; 93005; 94668; 97162; 97166; 99284; J7030; J7120; A4216; C1781; J2405